=== PATIENT | male | born 1955 | race Caucasian/White ===

== ENCOUNTER 2018-06-03 07:26 | Day surgery (SDC) | payer OTHER ==
[2018-06-03] MEDS ORDERED: diphenhydrAMINE 25 MG CAP PO ONE ×2 (07:31→07:49)
[2018-06-03] MEDS ORDERED: DIAZEPAM 5 MG TAB PO ONE (07:31)
[2018-06-03] MEDS ORDERED: FAMOTIDINE 20 MG TAB PO ONE (07:31)
[2018-06-03] MEDS ORDERED: ASPIRIN EC 325 MG TAB PO ONE ×2 (07:31→07:49)
[2018-06-03] MEDS ORDERED: NS 1,000 ML IV ONE (07:31)
[2018-06-03] MEDS ORDERED: DIAZEPAM 5 MG TAB ONE (07:49)
[2018-06-03] MEDS ORDERED: FAMOTIDINE 20 MG TAB ONE (07:49)
[2018-06-03 08:00] LABS: PLATELET COUNT 216 10^3/uL (150-400)
[2018-06-03] MEDS ORDERED: fentaNYL 100 MCG/2 ML INJ ONE (08:08)
[2018-06-03] MEDS ORDERED: LIDOCAINE 1% 300 MG/30 ML SDV ONE (08:08)
[2018-06-03] MEDS ORDERED: IOPAMIDOL (ISOVUE-370) 150 ML BTL IV ONE (08:08)
[2018-06-03] MEDS ORDERED: MIDAZOLAM 2 MG/2 ML VIAL ONE ×3 (08:08→09:36)
[2018-06-03 08:16] LABS: INR 0.94 (0.83-1.16); PROTIME(PATIENT) 12.8 SEC (12.0-15.0)
[2018-06-03] MEDS ORDERED: HEPARIN 10,000 UNIT/10 ML MDV (1,000 UNIT/ML) ONE ×2 (08:55→09:50)
[2018-06-03] MEDS ORDERED: VERAPAMIL 5 MG/2 ML VIAL ONE (08:55)
--- NOTE | 2018-06-03 09:01 | PDPROPOC ---
Sedation Plan of Care Sedation Plan of Care: vital signs stable, mental status noted, patient educated of risks, benefits, alternatives, patient can tolerate sedation ASA Classification: ASA 2 Planned drugs: fentanyl, midazolam Mallampati Score: Class 2 Mallampati Reference Image: Patient passed 3-3-2 rule?: Yes
--- NOTE | 2018-06-03 09:02 | PDHPUP ---
History & Physical Update H&P update statement: This history and physical update is based on an assessment of the patient which was completed after admission or registration (within 24 hours), but prior to the surgery/procedure. H&P update: H&P reviewed & patient examined (History of PCI 2010. This was done from the left radial artery. Complicated by incomplete catheter selection. Patient reports questionable history of dye allergy. Last procedure performed without premedication.), no change in patient's condition since H&P completed
[2018-06-03] MEDS ORDERED: CLOPIDOGREL BISULFATE 75 MG TAB ONE (09:53)
[2018-06-03] MEDS ORDERED: CLOPIDOGREL BISULFATE 75 MG TAB PO ONE (09:58)
--- NOTE | 2018-06-03 10:04 | PDDXCAT ---
Diagnostic Cath Note - . Date: 06/03/18 Clinical Evaluator: Percy Indication: Class I/II angina, intolerance to med therapy or failure to respond High-risk criteria on non-invasive testing: stress-induced moderate-size multiple perfusion defects - Procedure Access: right wrist Procedure: left heart catheterization, coronary angiography, left ventriculogram - Materials Left Heart Cath size: 5F Left Heart Cath materials: JL4.0, pigtail, Meliton's R - Findings-Left Heart Catheterization LM: Unobstructed LAD: Proximal vessel is heavily stented. There is a 99% stenosis at the distal tip of the mid LAD stent. LCX: Site of prior stenting widely patent. RCA: Dominant vessel, luminal irregularities with no focal stenosis. EDP: 15 mm of mercury post procedure LVEF: 60% postprocedure Wall motion: None postprocedure Complications: None Estimated blood loss: <50ml Closure method: TR Band Assessment: Angina with abnormal perfusion study and critical mid LAD stenosis. Preserved left ventricular systolic function with normal filling pressures. Patent site of circumflex artery stent. Plan: Ad Hoc PCI of the LAD Intervention: Procedure: After reviewing diagnostic angiograms it was elected to proceed with ad Hoc PCI of the LAD. Patient was anticoagulated with heparin. After 78723 units, ACT was 110. Patient was administered an additional 3000 of heparin. Using a 6 Hebrew JL4 guiding catheter left main coronary selectively intubated. Using a 0.014 luge wire the LAD stenosis was crossed and placed in the distal vessel. The mid LAD stenosis was pre-dilated with a 2.5 mm balloon. Repeat angiograms revealed antegrade flow. Elected proceed with stenting a 2.5 x 20 mm synergy stent was placed across the lesion. Was deployed using a single inflation to 20 atmospheres. A 3.0 by 16 mm synergy stent was placed proximally. It was deployed using a single inflation. Both stents were post dilated with a 3 mm balloon to 20 atmospheres. Repeat angiogram showed ALDAIR grade 3 flow. Left ventricular angiography was performed. The arteriotomy was closed using a TR band. Patient is taken to recovery for continued care. Final ACT is pending at the time of this dictation. He will be loaded with Plavix since he will need triple anticoagulation with dual antiplatelet therapy plus Eliquis. Patient Problems: Problems Problem Status Onset Atrial fibrillation, currently in sinus rhythm Acute
[2018-06-04] MEDS ORDERED: ASPIRIN EC 81 MG TAB PO SCH (09:00)
[2018-06-04] MEDS ORDERED: CLOPIDOGREL BISULFATE 75 MG TAB PO SCH (09:00)
--- NOTE | 2018-06-04 15:59 | CPEKG ---
Test Reason : OPEN Blood Pressure : / mmHG Vent. Rate : 074 BPM Atrial Rate : 074 BPM P-R Int : 178 ms QRS Dur : 137 ms QT Int : 444 ms P-R-T Axes : 026 014 002 degrees QTc Int : 493 ms Sinus rhythm Right bundle branch block Inferior infarct, old Lateral leads are also involved In comparison to prior, patient now in sinus rhythm Confirmed by Lyle Coy ([id number]) on 06/04/2018 3:59:04 PM Referred By: SHABBIR ARAGON Confirmed By:Lyle Coy
--- NOTE | 2018-06-04 15:59 | CPEKG ---
Test Reason : OPEN Blood Pressure : / mmHG Vent. Rate : 111 BPM Atrial Rate : 200 BPM P-R Int : 200 ms QRS Dur : 131 ms QT Int : 361 ms P-R-T Axes : 000 040 011 degrees QTc Int : 491 ms Atrial fibrillation Right bundle branch block Inferior infarct, old Confirmed by Lyle Coy ([id number]) on 06/04/2018 3:58:34 PM Referred By: Noman Greer Confirmed By:Lyle Coy
== END 2018-06-03 13:57 | disposition home or self-care (01) ==
LOC: FCATH 07:26
PROVIDERS: ATTEND Internal Medicine Interventional Cardiology
DX: T82.855A Stenosis of coronary artery stent, initial encounter (principal); I25.119 Atherosclerotic heart disease of native coronary artery with unspecified angina pectoris; I48.0 Paroxysmal atrial fibrillation; I48.92 Unspecified atrial flutter; I10 Essential (primary) hypertension; E78.5 Hyperlipidemia, unspecified; E11.9 Type 2 diabetes mellitus without complications
CPT/HCPCS: 92928; 93005; 93458; C1725; C1769; C1887; C1874; C9600; J1644; J2250; J3010; Q9967